=== PATIENT | male | born 1980 | race Two or more races ===

== ENCOUNTER 2017-06-09 19:32 | Emergency (ER) | payer OTHER ==
[~2017-06-09] VITALS: Ht 182.9 cm; Wt 100.0 kg
[2017-06-09 23:18] VITALS: BP 144/75
[2017-06-09] MEDS ORDERED: ANUC25SU PR (23:36)
== END 2017-06-09 23:41 | disposition home or self-care (01) ==
LOC: M ED 19:32
DX: K64.8 Other hemorrhoids (principal); Z88.5 Allergy status to narcotic agent; F17.200 Nicotine dependence, unspecified, uncomplicated

== ENCOUNTER 2018-02-16 17:14 | Emergency (ER) | payer OTHER ==
[2018-02-16] MEDS: KETOROLAC 30 MG/ML VIAL (J1885) IV (17:45)
[2018-02-16] MEDS: GI COCKTAIL 50ML BTL(HYOSCYAMINE/MAALOX/LIDOCAINE VISCOUS)(1:3:1) PO (17:45)
[2018-02-16 17:52] LABS: BASO # 0.1 10^3/uL (0.0-0.2); BASO % 0.5 % (0.0-1.0); EOS # 0.3 10^3/uL (0.0-0.50); HEMATOCRIT 44.4 % (42.0-52.0); IMMATURE GRANULOCYTE % 0.3 % (0-3.0); LYMPH # 3.4 10^3/uL (1.5-4.5); LYMPH % 34.7 % (24.0-44.0); MONO # 1.4 10^3/uL (0.0-0.8); MONO % 14.8 % (0.0-5.0); NEUTROPHILS # 4.5 10^3/uL (1.8-7.7); NEUTROPHILS % 46.7 % (36.0-66.0); PLATELET COUNT, AUTOMATED 233 10^3/uL (150-450); RED BLOOD COUNT 4.44 10^6/uL (4.30-6.10); RED CELL DISTRIBUTION WIDTH 12.3 % (11.5-14.5); WHITE BLOOD COUNT 9.7 10^3/uL (4.0-10.0)
[2018-02-16 18:04] LABS: ALBUMIN 3.9 GM/DL (3.2-5.2); ALBUMIN/GLOBULIN RATIO 0.91 (1.00-1.93); ALKALINE PHOSPHATASE 46 U/L (45-117); ALT/SGPT 33 U/L (12-78); ANION GAP 7 MEQ/L (8-16); AST/SGOT 20 U/L (7-37); BILIRUBIN,DIRECT 0.1 MG/DL (0.0-0.2); BILIRUBIN,TOTAL 0.4 MG/DL (0.2-1.0); BLOOD UREA NITROGEN 15 MG/DL (7-18); CALCIUM LEVEL 9.2 MG/DL (8.5-10.1); CARBON DIOXIDE LEVEL 25 MEQ/L (21-32); CHLORIDE LEVEL 108 MEQ/L (98-107); CK-MB VALUE MASS < 1.0 NG/ML (<3.6); CPK CREATINE PHOSPHOKINASE 155 U/L (39-308); CREATININE FOR GFR 1.16 MG/DL (0.70-1.30); GLOMERULAR FILTRATION RATE > 60.0 (>60); GLUCOSE, FASTING 82 MG/DL (70-100); LIPASE 131 U/L (73-393); MB/CK RELATIVE INDEX 0.64 (< OR =4); POTASSIUM SERUM 4.1 MEQ/L (3.5-5.1); SODIUM LEVEL 140 MEQ/L (136-145); TOTAL PROTEIN 8.2 GM/DL (6.4-8.2); TROPONIN I < 0.02 NG/ML (< 0.10)
[2018-02-16 18:59] LABS: KETONE, URINE AUTO RFX NEGATIVE (NEGATIVE); LEUKOCYTE ESTERASE UR AUTO RFX NEGATIVE (NEGATIVE); MUCUS, URINE RFX SMALL (NEGATIVE); NITRITE, URINE AUTO RFX NEGATIVE (NEGATIVE); RBC, URINE AUTO RFX 1 /HPF (0-3); SPECIFIC GRAVITY UR AUTO RFX 1.019 (1.002-1.035); SQUAM EPITHELIAL CELL UR AURFX 0 /HPF (0-6); WBC, URINE AUTO RFX 0 /HPF (0-3)
[2018-02-16] MEDS: SUCRALFATE SUSP 1GM/10ML UD PO (19:00)
== END 2018-02-16 19:22 | disposition home or self-care (01) ==
LOC: M ED 17:14
DX: R07.9 Chest pain, unspecified (principal); R10.9 Unspecified abdominal pain; R11.0 Nausea; Z79.899 Other long term (current) drug therapy; Z88.5 Allergy status to narcotic agent; F17.210 Nicotine dependence, cigarettes, uncomplicated
CPT/HCPCS: J1885

== ENCOUNTER → 2018-06-26 | Outpatient (REF) | payer OTHER ==
[2018-06-26 13:04] LABS: SEMEN APPEARANCE OPAQUE (OPAQUE); SEMEN VISCOSITY LIQUID (LIQUID); SEMEN VOLUME 2.7 ml (4.0-5.0); SEMEN pH 8.5 (7.0-8.0)
[2018-06-26 13:05] LABS: % NORMAL FORMS 4 % (>=4); IMMOTILITY 68 %; NON PROGRESSIVE MOTILITY (c) 16 %; PROGRESSIVE MOTILITY (a) 16 % (>=32); SPERM CONCENTRATION 34.2 M/ml (>=15.0); SPERM# 92.4 M/Ejac (>=39); TOTAL FUNCTIONAL 1.5 M/Ejac.; TOTAL MOTILITY 32 % (>=40); TOTAL PROGRESSIVE SPERM 14.8 M/Ejac.; WBC CONCENTRATION <=1 M/ml (<=1 M/ml)
== END ==
LOC: M LAB REF 13:01
DX: N46.9 Male infertility, unspecified (principal)

== ENCOUNTER 2019-07-17 07:11 | Emergency (ER) | payer OTHER ==
[~2019-07-17] VITALS: Ht 185.4 cm; Wt 100.9 kg
[~2019-07-17 07:11] MED LIST: ANUC25SU PR; PEPC1TAB5 PO; SUCR1SS PO
--- NOTE | 2019-07-17 07:56 | REP ---
Right foot radiographs: Four views. History: Fell in a hole. Findings: Four views of the right foot show overall normal mineralization. No fracture or subluxation is visible. No opaque foreign body seen. Impression: No fracture seen. Electronically Signed by Deepak Silva MD 07/17/2019 07:47 A
[2019-07-17] MEDS ORDERED: MOBI4TAB PO (08:16)
[2019-07-17] MEDS ORDERED: NAPROXEN 250 MG TAB PO ONE (08:30)
[2019-07-17 08:54] VITALS: BP 144/97
== END 2019-07-17 09:07 | disposition home or self-care (01) ==
LOC: M ED 07:11
DX: S93.401A Sprain of unspecified ligament of right ankle, initial encounter (principal); S93.601A Unspecified sprain of right foot, initial encounter; W22.8XXA Striking against or struck by other objects, initial encounter; Y99.0 Civilian activity done for income or pay; Z88.6 Allergy status to analgesic agent

== ENCOUNTER 2020-01-07 14:01 | Emergency (ER) | payer OTHER ==
[~2020-01-07] VITALS: Ht 185.4 cm; Wt 100.8 kg
[~2020-01-07 14:01] MED LIST changes: +MOBI4TAB PO
[2020-01-07] MEDS ORDERED: INDOMETHACIN 25 MG CAP PO ONE (14:45)
[2020-01-07 14:58] LABS: BASO # 0.1 10^3/uL (0.0-0.2); BASO % 0.5 % (0.0-1.0); EOS # 0.6 10^3/uL (0.0-0.5); EOS % 6.1 % (0.0-3.0); HEMATOCRIT 45.7 % (42.0-52.0); LYMPH # 2.1 10^3/uL (1.5-5.0); LYMPH % 21.4 % (24.0-44.0); MEAN CORPUSCULAR HEMOGLOBIN 35.3 pg (27.0-33.0); MEAN CORPUSCULAR VOLUME 100.9 fl (80.0-96.0); MONO # 1.2 10^3/uL (0.0-0.8); NEUTROPHILS # 5.8 10^3/uL (1.5-8.5); NEUTROPHILS % 59.2 % (36.0-66.0); PLATELET COUNT, AUTOMATED 248 10^3/uL (150-450); RED BLOOD COUNT 4.53 10^6/uL (4.30-6.10); WHITE BLOOD COUNT 9.9 10^3/uL (4.0-10.0)
[2020-01-07 15:22] LABS: BLOOD UREA NITROGEN 20 MG/DL (7-18); C REACTIVE PROTEIN QUANTITATIV 0.43 MG/DL (0.00-0.30); CALCIUM LEVEL 9.2 MG/DL (8.5-10.1); CARBON DIOXIDE LEVEL 26 MEQ/L (21-32); CHLORIDE LEVEL 107 MEQ/L (98-107); CREATININE FOR GFR 1.07 MG/DL (0.70-1.30); GLOMERULAR FILTRATION RATE > 60.0 (>60); GLUCOSE, FASTING 106 MG/DL (70-100); POTASSIUM SERUM 4.7 MEQ/L (3.5-5.1); SODIUM LEVEL 138 MEQ/L (136-145); URIC ACID 9.2 MG/DL (3.5-7.2)
[2020-01-07 15:26] LABS: ERYTHROCYTE SEDIMENTATION RATE 8 mm/hr (0-15)
[2020-01-07] MEDS ORDERED: COLCHICINE 0.6 MG TAB PO ONE (15:45)
[2020-01-07] MEDS ORDERED: COLC1TAB13 PO (15:47)
[2020-01-07 15:53] VITALS: BP 142/98
--- NOTE | 2020-01-07 23:04 | REP ---
LEFT 2ND TOE: Four views of left 2nd toe performed. There is no fracture, dislocation, or intrinsic bone disease. IMPRESSION: Negative exam left 2nd toe. Electronically Signed by Kasi Horta MD 01/08/2020 04:51 P
== END 2020-01-07 15:57 | disposition home or self-care (01) ==
LOC: M ED 14:01
DX: M1A.0720 Idiopathic chronic gout, left ankle and foot, without tophus (tophi) (principal); I10 Essential (primary) hypertension; F17.200 Nicotine dependence, unspecified, uncomplicated; Z90.49 Acquired absence of other specified parts of digestive tract; Z88.6 Allergy status to analgesic agent

== ENCOUNTER 2020-03-12 16:03 | Emergency (ER) | payer OTHER ==
[~2020-03-12] VITALS: Ht 185.4 cm; Wt 112.3 kg
[~2020-03-12 16:03] MED LIST changes: +COLC0.6T47 PO
--- NOTE | 2020-03-12 17:00 | REP ---
Left ankle series: Four views. History: Swelling and pain. Findings: Four views of the left ankle demonstrate anterior and lateral soft tissue swelling. Ankle mortise is intact. No fractures seen. A joint spaces are preserved. Impression: No fracture noted. Anterior soft tissue swelling. No erosive change. Electronically Signed by Deepak Silva MD 03/12/2020 04:51 P
[2020-03-12] MEDS ORDERED: INDO-16 PO (17:01)
[2020-03-12 17:10] VITALS: BP 140/88
[2020-05-08] MEDS ORDERED: COLC0.6T47 PO (16:49)
== END 2020-03-12 17:20 | disposition home or self-care (01) ==
LOC: M ED 16:03
DX: M10.9 Gout, unspecified (principal); I10 Essential (primary) hypertension; Z88.5 Allergy status to narcotic agent; Z79.899 Other long term (current) drug therapy

== ENCOUNTER 2020-05-08 14:14 | Emergency (ER) | payer OTHER ==
[~2020-05-08] VITALS: Ht 185.4 cm; Wt 108.6 kg
[~2020-05-08 14:14] MED LIST changes: -COLC0.6T47 PO; +COLC1TAB13 PO; +INDO-16 PO
[2020-05-08] MEDS ORDERED: ALEVE (14:25)
[2020-05-08] MEDS ORDERED: COLC1TAB13 PO (16:49)
[2020-05-08] MEDS ORDERED: NAPR-837 PO (16:50)
[2020-05-08 17:01] VITALS: BP 150/92
== END 2020-05-08 17:10 | disposition home or self-care (01) ==
LOC: M ED 14:14
DX: M10.9 Gout, unspecified (principal); I10 Essential (primary) hypertension; F43.10 Post-traumatic stress disorder, unspecified; Z88.5 Allergy status to narcotic agent; F17.210 Nicotine dependence, cigarettes, uncomplicated

== ENCOUNTER 2020-07-01 13:48 | Emergency (ER) | payer OTHER ==
[~2020-07-01] VITALS: Ht 185.4 cm; Wt 107.4 kg
[~2020-07-01 13:48] MED LIST changes: +ALEVE; +NAPR-837 PO
[2020-07-01] MEDS ORDERED: NAPR-837 PO (15:16)
[2020-07-01] MEDS ORDERED: ALLO100T PO (15:16)
[2020-07-01 15:27] VITALS: BP 158/92
== END 2020-07-01 15:44 | disposition home or self-care (01) ==
LOC: M ED 13:48
DX: M10.072 Idiopathic gout, left ankle and foot (principal); I10 Essential (primary) hypertension; F12.10 Cannabis abuse, uncomplicated; F17.200 Nicotine dependence, unspecified, uncomplicated; F43.10 Post-traumatic stress disorder, unspecified; Z88.6 Allergy status to analgesic agent

== ENCOUNTER 2020-10-05 18:48 | Emergency (ER) | payer OTHER ==
[~2020-10-05] VITALS: Ht 185.4 cm; Wt 106.5 kg
[~2020-10-05 18:48] MED LIST changes: +ALLO100T PO; +COLC0.6T47 PO; -COLC1TAB13 PO
--- OUTSIDE RECORDS SUMMARY | 2020-10-05 18:53 | CCD ---
Author Author [facility] Organization [facility] Address Unknown Phone Unavailable Support Name Relationship Address Phone CRACKER Next Of Kin [address] [place] [address] [facility] [place] [address] [place] [address] UE Next Of Kin Unknown Unavailable VERA DILLON Next Of Kin [address] [place] [address] [facility] ADE4 Next Of Kin [address] [place] [address] Clive DILLON Next Of Kin [place], [place] [id number] Vera Dillon ECON [address] [place] [address] Unavailable Re-disclosure Warning The records that you are about to access may contain information from federally-assisted alcohol or drug abuse programs. If such information is present, then the following federally mandated warning applies: This information has been disclosed to you from records protected by federal confidentiality rules (42 CFR part 2). The federal rules prohibit you from making any further disclosure of this information unless further disclosure is expressly permitted by the written consent of the person to whom it pertains or as otherwise permitted by 42 CFR part 2. A general authorization for the release of medical or other information is NOT sufficient for this purpose. The Federal rules restrict any use of the information to criminally investigate or prosecute any alcohol or drug abuse patient.The records that you are about to access may contain highly sensitive health information, the redisclosure of which is protected by Article 27-F of the [facility] Public Health law. If you continue you may have access to information: Regarding HIV / AIDS; Provided by facilities licensed or operated by the [facility] Office of Mental Health; or Provided by the [facility] Office for People With Developmental Disabilities. If such information is present, then the following [facility] mandated warning applies: This information has been disclosed to you from confidential records which are protected by state law. State law prohibits you from making any further disclosure of this information without the specific written consent of the person to whom it pertains, or as otherwise permitted by law. Any unauthorized further disclosure in violation of state law may result in a fine or correction sentence or both. A general authorization for the release of medical or other information is NOT sufficient authorization for further disc losure. Allergies and Adverse Reactions Type Description Substance Reaction Status Data Source(s ) Drug allergy Morphine Sulfate Morphine Angioedema Active eCW1 ([facility]) Encounters Encounter Providers Location Date Indications Data Source(s ) [facility] [address] [place] [address] 07/15/2020 12:00:00 AM EDT eCW1 ([facility]) [address] [address] 07/15/2020 12:00:00 AM EDT eCW1 ([facility]) [address] [place] [address] 01/14/2020 12:00:00 AM EDT eCW1 ([facility]) [address] [address] 01/08/2020 12:00:00 AM EDT eCW1 ([facility]) [address] [address] 01/08/2020 12:00:00 AM EDT eCW1 ([facility]) [address] [place] [address] 12/28/2019 12:00:00 AM EDT eCW1 ([facility]) Medications Medication Brand Name Start Date Product Form Dose Route Admi nistrative Instructions Pharmacy Instructions Status Indications Reaction Description Data Source(s) 500 mg 07/01/2020 12:00:00 AM EDT tablet 30 TAKE ONE TABLET BY MOUTH TWICE A DAY WITH FOOD TAKE ONE TABLET BY MOUTH TWICE A DAY WITH FOOD SOLD: 07/01/2020 [facility] 100 mg 07/01/2020 12:00:00 AM EDT tablet 30 TAKE ONE TABLET BY MOUTH EVERY DAY TAKE ONE TABLET BY MOUTH EVERY DAY SOLD: 07/01/2020 [facility] 500 mg 05/21/2020 12:00:00 AM EDT tablet 20 TAKE ONE TABLET BY MOUTH TWICE A DAY WITH FOOD TAKE ONE TABLET BY MOUTH TWICE A DAY WITH FOOD SOLD: 05/30/2020 [facility] 500 mg 05/08/2020 12:00:00 AM EDT tablet 30 TAKE ONE TABLET BY MOUTH TWICE A DAY - TAKE WITH FOOD TAKE ONE TABLET BY MOUTH TWICE A DAY - TAKE WITH FOOD SOLD: 05/08/2020 [facility] 0.6 mg 05/08/2020 12:00:00 AM EDT tablet 3 TAKE TWO TABLETS BY MOUTH NOW THEN TAKE ONE TABLET IN 1 HOUR DIRECTED TAKE TWO TABLETS BY MOUTH NOW THEN TAKE ONE TABLET IN 1 HOUR DIRECTED SOLD: 05/08/2020 [facility] 25 mg 03/12/2020 12:00:00 AM EDT capsule 30 TAKE ONE CAPSULE BY MOUTH THREE TIMES A DAY FOR ARTHRITIS WITH FOOD TAKE ONE CAPSULE BY MOUTH THREE TIMES A DAY FOR ARTHRITIS WITH FOOD SOLD: 03/12/2020 [facility] 500 mg 03/12/2020 12:00:00 AM EDT tablet 14 TAKE ONE TABLET BY MOUTH EVERY 12 HOURS WITH FOOD OR MILK FOR 7 DAYS TAKE ONE TABLET BY MOUTH EVERY 12 HOURS WITH FOOD OR MILK FOR 7 DAYS SOLD: 03/12/2020 [facility] Naproxen 500 MG Oral Tablet Naproxen 500 MG 01/08/2020 12:00:00 AM EDT active 1 tablet with food or milk a s needed eCW1 ([facility]) Naproxen 500 MG Oral Tablet Naproxen 500 MG 01/08/2020 12:00:00 AM EDT active 1 tablet with food or milk a s needed eCW1 ([facility]) 500 mg 01/08/2020 12:00:00 AM EDT tablet 14 TAKE ONE TABLET BY MOUTH WITH FOOD OR MILK NEEDED EVERY 12 HOURS FOR 7 DAYS TAKE ONE TABLET BY MOUTH WITH FOOD OR MILK NEEDED EVERY 12 HOURS FOR 7 DAYS SOLD: 01/08/2020 [facility] Insurance Providers Payer name Policy type / Coverage type Policy ID Covered libertarian ID Covered libertarian's relationship to vanegas Policy Vanegas Plan Information [facility] COMM[facility] PLAN [facility] [id number] SP [id number] [facility] O [id number] S [id number] [facility] COMMUNITY PLAN [facility] [id number] SP [id number] ANSI-Medicaid [id number] ANSI-Commercial [id number] ANSI-Not a Secondary Insurance [id number] [facility] PLAN [facility] [id number] SP [id number] [facility] [id number] SP [id number] [facility] O [id number] S 0001 [id number] [facility] [id number] Problems, Conditions, and Diagnoses Code Display Name Description Problem Type Effective Dates Data Source(s) M1A.0720 892901025747568 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 Problem 01/14/2020 12:00:00 AM EDT eCW1 ([facility]) M1A.0720 558891779351757 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 Problem 01/14/2020 12:00:00 AM EDT eCW1 ([facility]) Social History Code Duration Value Status Description Data Source(s ) Smoking 01/14/2020 12:00:00 AM EDT Current Smoker completed Curre nt Smoker eCW1 ([facility]) Vital Signs ID Date Data Source UNK Name Value Range Interpretation Code Description Data Source(s) Diastolic blood pressure 82 mm[Hg] 82 mm[Hg] eCW1 ([facility]) Systolic blood pressure 132 mm[Hg] 132 mm[Hg] e CW1 ([facility]) Body temperature 96.4 [degF] 96.4 [degF] eCW1 ( [facility]) Respiratory rate 18 /min 18 /min eCW1 ([facility]) Heart rate 93 /min 93 /min eCW1 ([facility]) Body mass index (BMI) [Ratio] 33.22 kg/m2 33.22 kg/m2 eCW1 ([facility]) Body height 72 [in_us] 72 [in_us] eCW1 ([facility]) Body weight Measured 245 [lb_av] 245 [lb_av] eC W1 ([facility]) Patient Treatment Plan of Care Planned Activity Planned Date Details Description Data Source (s) Naproxen 500 MG Oral Tablet 01/08/2020 12:00:00 AM EDT eCW1 ([facility]) Naproxen 500 MG Oral Tablet 01/08/2020 12:00:00 AM EDT eCW1 ([facility])
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
[2020-10-05] MEDS ORDERED: LIDOCAINE 4% CREAM 5GM (LMX4) TOP ONE (19:45)
[2020-10-05] MEDS ORDERED: NAPROXEN 250 MG TAB PO ONE (19:45)
[2020-10-05 19:58] LABS: BASO % 0.3 % (0.0-1.0); EOS # 0.6 10^3/uL (0.0-0.5); EOS % 5.5 % (0.0-3.0); HEMATOCRIT 45.2 % (42.0-52.0); LYMPH # 2.4 10^3/uL (1.5-5.0); LYMPH % 20.4 % (24.0-44.0); MEAN CORPUSCULAR HEMOGLOBIN 33.8 pg (27.0-33.0); MEAN CORPUSCULAR HGB CONC 33.2 g/dl (32.0-36.5); MEAN CORPUSCULAR VOLUME 101.8 fl (80.0-96.0); MONO # 1.6 10^3/uL (0.0-0.8); MONO % 13.3 % (0.0-5.0); NEUTROPHILS # 7.1 10^3/uL (1.5-8.5); NEUTROPHILS % 60.2 % (36.0-66.0); PLATELET COUNT, AUTOMATED 259 10^3/uL (150-450); RED BLOOD COUNT 4.44 10^6/uL (4.30-6.10); WHITE BLOOD COUNT 11.7 10^3/uL (4.0-10.0)
[2020-10-05 20:15] LABS: ERYTHROCYTE SEDIMENTATION RATE 8 mm/hr (0-15)
[2020-10-05 20:25] LABS: C REACTIVE PROTEIN QUANTITATIV 0.52 MG/DL (0.00-0.30); URIC ACID 9.2 MG/DL (3.5-7.2)
--- OUTSIDE RECORDS SUMMARY | 2020-10-05 20:41 | CCD ---
Author Author [facility] Organization [facility] Address Unknown Phone Unavailable Support Name Relationship Address Phone CRACKER Next Of Kin [address] [place] [address] [facility] RESERVES [place] [address] [place] [address] [phone] UE Next Of Kin Unknown Unavailable VERA DILLON Next Of Kin [address] [place] [address] [facility] ADE4 Next Of Kin [address] [place] [address] Clive DILLON Next Of Kin UNKNOWN [place], [place] [address] Vera Dillon ECON [address] [place] [address] Unavailable Re-disclosure Warning The records that you [...] is protected by Article 27-F of the [facility] Public Health law. If you continue you may have access to information: Regarding HIV / AIDS; Provided by facilities licensed or operated by the [facility] Office of Mental Health; or Provided by the [facility] Office for People With Developmental Disabilities. If such information is present, then the following [facility] mandated warning applies: This information has been [...] law may result in a fine or halfway sentence or both. A general authorization for the release of medical or other information is NOT sufficient authorization for further disc losure. Allergies and Adverse Reactions Type Description Substance Reaction Status Data Source(s ) Drug allergy Morphine Sulfate Morphine Angioedema Active eCW1 ([facility]) Encounters Encounter Providers Location Date Indications Data Source(s ) [facility] [address] [place] [address] 07/15/2020 12:00:00 AM EDT eCW1 ([facility]) [address] [address] 07/15/2020 12:00:00 AM EDT eCW1 ([facility]) [address] [place] [address] 01/14/2020 12:00:00 AM EDT eCW1 ([facility]) [address] [address] 01/08/2020 12:00:00 AM EDT eCW1 ([facility]) [address] [address] 01/08/2020 12:00:00 AM EDT eCW1 ([facility]) [address] [place] [address] 12/28/2019 12:00:00 AM EDT eCW1 ([facility]) Medications Medication Brand Name Start Date Product [...] food or milk a s needed eCW1 ([facility]) Naproxen 500 MG Oral Tablet Naproxen 500 MG 01/08/2020 12:00:00 AM EDT active 1 tablet with food or milk a s needed eCW1 ([facility]) 500 mg 01/08/2020 12:00:00 AM EDT tablet 14 TAKE ONE TABLET BY MOUTH WITH FOOD OR MILK NEEDED EVERY 12 HOURS FOR 7 DAYS TAKE ONE TABLET BY MOUTH WITH FOOD OR MILK NEEDED EVERY 12 HOURS FOR 7 DAYS SOLD: 01/08/2020 [facility] Insurance Providers Payer name Policy type / Coverage type Policy ID Covered green party ID Covered green party's relationship to vanegas Policy Vanegas Plan Information [facility] COMMUN[facility] PLAN [facility] [id number] SP [id number] [facility] O [id number] S [id number] [facility] COMMUNITY PLAN [facility] [id number] SP [id number] ANSI-Medicaid [id number] ANSI-Commercial [id number] ANSI-Not a Secondary Insurance [id number] [facility] PLAN [facility] [id number] SP [id number] [facility] [id number] SP [id number] [facility] O [id number] S 0001 [id number] [facility] [id number] Problems, Conditions, and Diagnoses Code Display Name Description Problem Type Effective Dates Data Source(s) M1A.0720 [id number] 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 Problem 01/14/2020 12:00:00 AM EDT eCW1 ([facility]) M1A.0720 175347288199357 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 Problem 01/14/2020 12:00:00 AM EDT eCW1 ([facility]) Social History Code Duration Value Status Description Data Source(s ) Smoking 01/14/2020 12:00:00 AM EDT Current Smoker completed Curre nt Smoker eCW1 ([facility]) Vital Signs ID Date Data Source UNK Name Value Range Interpretation Code Description Data Source(s) Diastolic blood pressure 82 mm[Hg] 82 mm[Hg] eCW1 ([facility]) Systolic blood pressure 132 mm[Hg] 132 mm[Hg] e CW1 ([facility]) Body temperature 96.4 [degF] 96.4 [degF] eCW1 ( [facility]) Respiratory rate 18 /min 18 /min eCW1 ([facility]) Heart rate 93 /min 93 /min eCW1 ([facility]) Body mass index (BMI) [Ratio] 33.22 kg/m2 33.22 kg/m2 eCW1 ([facility]) Body height 72 [in_us] 72 [in_us] eCW1 ([facility]) Body weight Measured 245 [lb_av] 245 [lb_av] eC W1 ([facility]) Patient Treatment Plan of Care Planned Activity Planned Date Details Description Data Source (s) Naproxen 500 MG Oral Tablet 01/08/2020 12:00:00 AM EDT eCW1 ([facility]) Naproxen 500 MG Oral Tablet 01/08/2020 12:00:00 AM EDT eCW1 ([facility])
[2020-10-05] MEDS ORDERED: NAPR-837 PO (20:46)
--- NOTE | 2020-10-05 20:49 | REPVR ---
PROCEDURE INFORMATION: Exam: US Duplex Left Lower Extremity Veins, Limited Exam date and time: 10/05/2020 8:23 PM Age: 40 years old Clinical indication: Pain; Foot; Left; Additional info: Ankle pain, swelling TECHNIQUE: Imaging protocol: Real-time Duplex ultrasound of the Left Lower Extremity with 2-D monroy scale, color Doppler flow and spectral waveform analysis with image documentation. Limited exam focused on the left lower extremity veins. COMPARISON: No relevant prior studies available. FINDINGS: Left deep veins: Unremarkable. The common femoral, femoral, proximal profunda femoral and popliteal veins are patent without thrombus. Normal Doppler waveforms. Normal compressibility and/or augmentation response. Soft tissues: Unremarkable. IMPRESSION: No evidence of deep vein thrombosis. Electronically signed by: Chente England On 10/05/2020 20:49:41 PM
[2020-10-05] MEDS ORDERED: NORCO 5/325MG TABLET (BULK FOR ED) PO ONE (21:00)
[2020-10-05 21:23] VITALS: BP 172/124
== END 2020-10-05 21:24 | disposition home or self-care (01) ==
LOC: M ED 18:48
DX: M10.9 Gout, unspecified (principal); Z79.899 Other long term (current) drug therapy; Z88.5 Allergy status to narcotic agent

== ENCOUNTER 2020-11-30 15:28 | Emergency (ER) | payer OTHER ==
[~2020-11-30] VITALS: Ht 185.4 cm; Wt 106.7 kg
[2020-11-30] MEDS ORDERED: IBUP-359 PO (15:45)
[2020-11-30] MEDS ORDERED: KETOROLAC 60MG 2ML VIAL IM ONE (16:25)
[2020-11-30] MEDS ORDERED: ROBA750T4 PO (17:12)
[2020-11-30] MEDS ORDERED: KETO10TAB PO (17:13)
[2020-11-30 17:35] VITALS: BP 152/88
== END 2020-11-30 17:38 | disposition home or self-care (01) ==
LOC: M ED 15:28
DX: G89.29 Other chronic pain (principal); M54.5 Low back pain; I10 Essential (primary) hypertension; F43.10 Post-traumatic stress disorder, unspecified; M10.9 Gout, unspecified; Z88.5 Allergy status to narcotic agent; F17.210 Nicotine dependence, cigarettes, uncomplicated
CPT/HCPCS: 96372; 99283; J1885

== ENCOUNTER 2021-03-05 16:53 | Emergency (ER) | payer OTHER ==
[~2021-03-05] VITALS: Ht 185.4 cm; Wt 99.7 kg
[~2021-03-05 16:53] MED LIST changes: +IBUP-359 PO; +KETO10TAB PO; +ROBA750T4 PO
[2021-03-05] MEDS ORDERED: DERMABOND TOPICAL SKIN ADHESIVE TOP ONE (20:00)
[2021-03-05] MEDS ORDERED: BOOSTRIX/ADACEL VACCINE (DIPHTH/PERTUSS/ACELL/TETANUS) 0.5ML SYR IM ONE (20:00)
[2021-03-05 21:22] VITALS: BP 168/98
--- NOTE | 2021-03-05 21:56 | REPVR ---
PROCEDURE INFORMATION: Exam: XR Left Finger(s) Exam date and time: 03/05/2021 8:23 PM Age: 41 years old Clinical indication: Other: R/O fb TECHNIQUE: Imaging protocol: XR Left fingers. Views: Minimum 2 views. COMPARISON: No relevant prior studies available. FINDINGS: Bones/joints: No acute fracture or dislocation. No radiopaque foreign body is apparent. Soft tissues: See "Bones/joints" finding. IMPRESSION: No acute findings. Electronically signed by: Charlette Garner On 03/05/2021 21:56:20 PM
== END 2021-03-05 22:03 | disposition home or self-care (01) ==
LOC: M ED 16:53
DX: S61.211A Laceration without foreign body of left index finger without damage to nail, initial encounter (principal); W26.8XXA Contact with other sharp object(s), not elsewhere classified, initial encounter; Y92.018 Other place in single-family (private) house as the place of occurrence of the external cause; I10 Essential (primary) hypertension; Z88.5 Allergy status to narcotic agent; F17.210 Nicotine dependence, cigarettes, uncomplicated; F12.20 Cannabis dependence, uncomplicated

== ENCOUNTER 2021-07-05 15:08 | Emergency (ER) | payer OTHER ==
[~2021-07-05] VITALS: Ht 185.4 cm; Wt 97.1 kg
--- OUTSIDE RECORDS SUMMARY | 2021-07-05 15:15 | CCD ---
Author Author [facility] Organization [facility] Address Unknown Phone Unavailable Support Name Relationship Address Phone RE Next Of Kin Unknown Unavailable CRACKER Next Of Kin [address] [place] [address] [facility] [place]ERVES [place] [address] [place] [employer] Next Of Kin [address] [place] [address] UE Next Of Kin Unknown Unavailable VERA DILLON Next Of Kin [address] [place] [address] [facility] ADE4 Next Of Kin [address] [place] [address] C[place] [address] VERA DILLON ECON [address] [place] [address] Unavailable Re-disclosure Warning The records that you [...] is protected by Article 27-F of the [facility] Public Health law. If you continue you may have access to information: Regarding HIV / AIDS; Provided by facilities licensed or operated by the [facility] Office of Mental Health; or Provided by the [facility] Office for People With Developmental Disabilities. If such information is present, then the following [facility] mandated warning applies: This information has been [...] law may result in a fine or skilled nursing sentence or both. A general authorization for the release of medical or other information is NOT sufficient authorization for further disc losure. Encounters Encounter Providers Location Date Indications Data Source(s ) Unknown [address] [facility] [id number] 01/08/2021 12:00:00 AM EDT eCW1 (Formerly [facility]) Outpatient [address] [facility] [id number] 12/03/2020 12:00:00 AM EDT eCW1 ([facility]ly [facility]) Unknown [address] [facility] [address] [id number] 07/15/2020 12:00:00 AM EDT eCW1 ([facility]ly [facility]) [facility] [place] [address] [facility] [id number] 07/15/2020 12:00:00 AM EDT eCW1 ([facility]ly [facility]) Medications Medication Brand Name Start Date Product Form Dose Route Admi nistrative Instructions Pharmacy Instructions Status Indications Reaction Description Data Source(s) 500 mg 12/03/2020 12:00:00 AM EDT tablet 60 TAKE ONE TABLET BY MOUTH WITH FOOD OR MILK NEEDED FOR EVERY 12 HOURS TAKE ONE TABLET BY MOUTH WITH FOOD OR MILK NEEDED FOR EVERY 12 HOURS SOLD: 12/04/2020 [facility] 10 mg 12/01/2020 12:00:00 AM EDT tablet 20 TAKE ONE TABLET BY MOUTH EVERY 6 HOURS NEEDED FOR PAIN TAKE ONE TABLET BY MOUTH EVERY 6 HOURS A S NEEDED FOR PAIN SOLD: 12/01/2020 [facility] 750 mg 12/01/2020 12:00:00 AM EDT tablet 45 TAKE ONE TABLET BY MOUTH THREE TIMES A DAY TAKE ONE TABLET BY MOUTH THREE TIMES A DAY SOLD: 12/01/2020 [facility] 100 mg 07/01/2020 12:00:00 AM EDT tablet 30 TAKE ONE TABLET BY MOUTH EVERY DAY TAKE ONE TABLET BY MOUTH EVERY DAY SOLD: 07/01/2020 [facility] 500 mg 07/01/2020 12:00:00 AM EDT tablet 30 TAKE ONE TABLET BY MOUTH TWICE A DAY WITH FOOD TAKE ONE TABLET BY MOUTH TWICE A DAY WITH FOOD SOLD: 07/01/2020 [facility] 500 mg 05/21/2020 [...] 1 HOUR DIRECTED SOLD: 05/08/2020 [facility] Insurance Providers Payer name Policy type / Coverage type Policy ID Covered constitution party ID Covered constitution party's relationship to vanegas Policy Vanegas Plan Information [facility] [id number] SP [id number] [facility] [id number] SP [id number] [facility] [employer] [id number] SP [id number] [facility] O [id number] S [id number] ANSI-Medicaid [id number] ANSI-Commercial [id number] ANSI-Not a Secondary Insurance [id number] [facility] [id number] SP [id number] [facility] [id number] S 0001 [id number] [facility] [id number] Problems, Conditions, and Diagnoses No Information Surgeries/Procedures No Information Results No Information Social History Code Duration Value Status Description Data Source(s ) Smoking 12/03/2020 12:00:00 AM EDT Current Smoker completed Curre nt Smoker eCW1 ([facility]) Smoking 12/03/2020 12:00:00 AM EDT Current Smoker completed Curre nt Smoker eCW1 ([facility]) Vital Signs ID Date Data Source UNK Name Value Range Interpretation Code Description Data Source(s) Body weight 232 [lb_av] 232 [lb_av] eCW1 ([facility]) Body height 72 [in_i] 72 [in_i] eCW1 ([facility]) Body mass index (BMI) [Ratio] 31.46 kg/m2 31.46 kg/m2 eCW1 ([facility]) Heart rate 78 /min 78 /min eCW1 (Replaced by [facility]) Respiratory rate 18 /min 18 /min eCW1 ([facility]) Body temperature 97.9 [degF] 97.9 [degF] eCW1 ( [facility]) Systolic blood pressure 140 mm[Hg] 140 mm[Hg] e CW1 ([facility]) Diastolic blood pressure 100 mm[Hg] 100 mm[Hg] eCW1 ([facility])
[2021-07-05 17:13] LABS: RSV AMPLIFICATION NEGATIVE (NEGATIVE)
--- OUTSIDE RECORDS SUMMARY | 2021-07-05 17:16 | CCD ---
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 If you continue you may have access to information: Regarding HIV / AIDS; Provided by facilities licensed or operated by the [facility] Office of Mental Health; or Provided by the [facility] Office for People With Developmental Disabilities. If such information is present, then the following [facility] mandated warning applies: This information has [...] law may result in a fine or intermediate sentence or both. A general authorization for the release of medical or other information is NOT sufficient authorization for further disc losure. Encounters Encounter Providers Location Date Indications Data Source(s ) Unknown [address] [facility] [id number] 01/08/2021 12:00:00 AM EDT eCW1 ([facility]) Outpatient [address] [facility] [id number] 12/03/2020 12:00:00 AM EDT eCW1 ([facility]) Unknown [address] [facility] [address] [id number] 07/15/2020 12:00:00 AM EDT eCW1 ([facility]) [facility] [place] [address] [facility] [id number] 07/15/2020 12:00:00 AM EDT eCW1 ([facility]) Medications Medication Brand Name Start Date [...] relationship to vanegas Policy Vanegas Plan Information [facility] [id number] SP [id number] [facility] [id number] SP [id number] [facility] [id number] SP [id number] [facility] O [id number] S [id number] ANSI-Medicaid [id number] ANSI-Commercial [id number] ANSI-Not a Secondary Insurance [id number] [facility] [id number] SP [id number] [facility] [id number] S 0001 [id number] [facility] [id number] Problems, Conditions, and Diagnoses No Information Surgeries/Procedures No Information Results No Information Social History Code Duration Value Status Description Data Source(s ) Smoking 12/03/2020 12:00:00 AM EDT Current Smoker completed Curre nt Smoker eCW1 ([facility]) Smoking 12/03/2020 12:00:00 AM EDT Current Smoker completed Curre nt Smoker eCW1 ([facility]) Vital Signs ID Date Data Source UNK Name Value Range Interpretation Code Description Data Source(s) Body weight 232 [lb_av] 232 [lb_av] eCW1 ([facility]) Body height 72 [in_i] 72 [in_i] eCW1 ([facility]) Body mass index (BMI) [Ratio] 31.46 kg/m2 31.46 kg/m2 eCW1 ([facility]) Heart rate 78 /min 78 /min eCW1 ([facility]) Respiratory rate 18 /min 18 /min eCW1 ([facility]) Body temperature 97.9 [degF] 97.9 [degF] eCW1 ( [facility]) Systolic blood pressure 140 mm[Hg] 140 mm[Hg] e CW1 ([facility]) Diastolic blood pressure 100 mm[Hg] 100 mm[Hg] eCW1 ([facility])
[2021-07-05 17:53] VITALS: BP 160/100; O2SAT 98
--- NOTE | 2021-07-05 18:05 | REP ---
INDICATION: COUGH, FEVERS/CHILLS, COVID EXPOSURE COMPARISON: 02/16/2018 TECHNIQUE: Portable AP view of the chest FINDINGS: The mediastinum and cardiac silhouette are stable and within normal limits for portable technique. The lung silverman are clear without acute consolidation, effusion, or pneumothorax. Skeletal structures are intact. IMPRESSION: No acute cardiopulmonary process appreciated. <Electronically signed by Ludwin Roldan > 07/05/21 [id number]
[2021-07-05] MEDS ORDERED: ONDA4TAB6 PO (18:17)
[2021-07-05] MEDS ORDERED: PROAAER10 INH (18:17)
== END 2021-07-05 18:30 | disposition home or self-care (01) ==
LOC: M ED 15:08
DX: Z20.822 Contact with and (suspected) exposure to COVID-19 (principal); J06.9 Acute upper respiratory infection, unspecified; I10 Essential (primary) hypertension; F17.200 Nicotine dependence, unspecified, uncomplicated; F12.10 Cannabis abuse, uncomplicated; Z88.6 Allergy status to analgesic agent

== ENCOUNTER 2021-11-04 14:53 | Emergency (ER) | payer OTHER ==
[~2021-11-04] VITALS: Ht 185.4 cm; Wt 98.9 kg
[~2021-11-04 14:53] MED LIST changes: +ONDA4TAB6 PO; +PROAAER10 INH
[2021-11-04 16:07] LABS: BASO % 0.4 % (0.0-1.0); EOS # 0.3 10^3/uL (0.0-0.5); EOS % 3.2 % (0.0-3.0); HEMATOCRIT 44.8 % (42.0-52.0); HEMOGLOBIN 15.1 g/dl (13.5-17.5); LYMPH # 1.3 10^3/uL (1.5-5.0); LYMPH % 15.4 % (24.0-44.0); MEAN CORPUSCULAR HEMOGLOBIN 35.2 pg (27.0-33.0); MEAN CORPUSCULAR HGB CONC 33.7 g/dl (32.0-36.5); MEAN CORPUSCULAR VOLUME 104.4 fl (80.0-96.0); MONO # 1.4 10^3/uL (0.0-0.8); MONO % 16.1 % (2.0-8.0); NEUTROPHILS # 5.5 10^3/uL (1.5-8.5); NEUTROPHILS % 64.5 % (36.0-66.0); PLATELET COUNT, AUTOMATED 206 10^3/uL (150-450); RED BLOOD COUNT 4.29 10^6/uL (4.30-6.10); WHITE BLOOD COUNT 8.6 10^3/uL (4.0-10.0)
[2021-11-04 16:22] LABS: BLOOD UREA NITROGEN 13 MG/DL (7-18); C REACTIVE PROTEIN QUANTITATIV 7.21 MG/DL (0.00-0.30); CALCIUM LEVEL 8.5 MG/DL (8.5-10.1); CARBON DIOXIDE LEVEL 24 MEQ/L (21-32); CHLORIDE LEVEL 109 MEQ/L (98-107); CREATININE FOR GFR 1.05 MG/DL (0.70-1.30); GLOMERULAR FILTRATION RATE > 60.0 (>60); GLUCOSE, FASTING 91 MG/DL (70-100); POTASSIUM SERUM 4.1 MEQ/L (3.5-5.1); SODIUM LEVEL 141 MEQ/L (136-145); URIC ACID 7.4 MG/DL (3.5-7.2)
[2021-11-04 16:33] LABS: ERYTHROCYTE SEDIMENTATION RATE 16 mm/hr (0-15)
[2021-11-04] MEDS ORDERED: INDO50CA91 PO ×2 (16:55→17:39)
[2021-11-04 17:37] VITALS: BP 171/116
[2021-11-06 17:09] LABS: Lyme Disease IgG/IgM Antibodie <0.91 ISR (0.00-0.90); Lyme Disease IgM Ab Quantitati <0.80 index (0.00-0.79)
== END 2021-11-04 17:45 | disposition home or self-care (01) ==
LOC: M ED 14:53
DX: M10.9 Gout, unspecified (principal); M25.461 Effusion, right knee; I10 Essential (primary) hypertension; F43.10 Post-traumatic stress disorder, unspecified; Z88.5 Allergy status to narcotic agent; F17.210 Nicotine dependence, cigarettes, uncomplicated

== ENCOUNTER 2021-11-16 17:37 | Emergency (ER) | payer OTHER ==
[~2021-11-16] VITALS: Ht 185.4 cm; Wt 95.5 kg
[~2021-11-16 17:37] MED LIST changes: +INDO50CA91 PO
[2021-11-16 20:01] LABS: BASO # 0.1 10^3/uL (0.0-0.2); BASO % 0.4 % (0.0-1.0); EOS # 0.2 10^3/uL (0.0-0.5); EOS % 1.3 % (0.0-3.0); HEMATOCRIT 49.4 % (42.0-52.0); LYMPH # 1.7 10^3/uL (1.5-5.0); LYMPH % 14.3 % (24.0-44.0); MEAN CORPUSCULAR HEMOGLOBIN 34.8 pg (27.0-33.0); MEAN CORPUSCULAR HGB CONC 34.4 g/dl (32.0-36.5); MONO # 1.4 10^3/uL (0.0-0.8); MONO % 11.9 % (2.0-8.0); NEUTROPHILS # 8.4 10^3/uL (1.5-8.5); NEUTROPHILS % 71.6 % (36.0-66.0); PLATELET COUNT, AUTOMATED 343 10^3/uL (150-450); RED BLOOD COUNT 4.89 10^6/uL (4.30-6.10); WHITE BLOOD COUNT 11.7 10^3/uL (4.0-10.0)
[2021-11-16 20:26] LABS: BLOOD UREA NITROGEN 14 MG/DL (7-18); CALCIUM LEVEL 9.7 MG/DL (8.5-10.1); CARBON DIOXIDE LEVEL 30 MEQ/L (21-32); CHLORIDE LEVEL 103 MEQ/L (98-107); CREATININE FOR GFR 1.13 MG/DL (0.70-1.30); GLOMERULAR FILTRATION RATE > 60.0 (>60); GLUCOSE, FASTING 93 MG/DL (70-100); POTASSIUM SERUM 4.6 MEQ/L (3.5-5.1); SODIUM LEVEL 138 MEQ/L (136-145); URIC ACID 7.5 MG/DL (3.5-7.2)
[2021-11-16 21:17] VITALS: BP 170/105
[2021-11-16] MEDS ORDERED: COLCHICINE 0.6 MG TABLET PO ONE ×2 (21:25→21:35)
[2021-11-16] MEDS ORDERED: LISI10TA22 PO (21:34)
[2021-11-16 22:00] VITALS: BP 170/105
== END 2021-11-16 22:20 | disposition home or self-care (01) ==
LOC: M ED 17:37
DX: M10.072 Idiopathic gout, left ankle and foot (principal); I10 Essential (primary) hypertension; Z88.5 Allergy status to narcotic agent; Z79.899 Other long term (current) drug therapy; F17.210 Nicotine dependence, cigarettes, uncomplicated

== ENCOUNTER 2021-12-10 15:39 | Emergency (ER) | payer OTHER ==
[~2021-12-10] VITALS: Ht 185.4 cm; Wt 95.6 kg
[~2021-12-10 15:39] MED LIST changes: +LISI10TA22 PO
[2021-12-10] MEDS ORDERED: INDO50CA91 PO (16:39)
[2021-12-10 17:16] VITALS: BP 115/77
== END 2021-12-10 17:18 | disposition home or self-care (01) ==
LOC: M ED 15:39
DX: M10.9 Gout, unspecified (principal); I10 Essential (primary) hypertension; F43.10 Post-traumatic stress disorder, unspecified; Z79.899 Other long term (current) drug therapy; Z88.5 Allergy status to narcotic agent; F12.20 Cannabis dependence, uncomplicated

== ENCOUNTER 2022-01-21 21:48 | Emergency (ER) | payer OTHER ==
[~2022-01-21] VITALS: Ht 185.4 cm; Wt 97.7 kg
[~2022-01-21 21:48] MED LIST changes: +BENZ200C70 PO; +OSEL75CA PO
[2022-01-21 21:49] VITALS: BP 137/89
[2022-01-22] MEDS ORDERED: NAPROXEN 250 MG TAB PO ONE (03:15)
[2022-01-22] MEDS ORDERED: NAPR-837 PO (03:17)
== END 2022-01-22 03:38 | disposition home or self-care (01) ==
LOC: M ED 21:48
DX: M71.22 Synovial cyst of popliteal space [Baker], left knee (principal); Z88.5 Allergy status to narcotic agent; F17.210 Nicotine dependence, cigarettes, uncomplicated

== ENCOUNTER 2022-03-11 12:11 | Emergency (ER) | payer OTHER ==
[~2022-03-11] VITALS: Ht 185.4 cm; Wt 95.6 kg
[2022-03-11 12:12] VITALS: BP 135/93
[2022-03-11] MEDS ORDERED: IBUP200C29 PO (12:27)
== END 2022-03-11 15:32 | disposition left against medical advice (07) ==
LOC: M ED 12:11
DX: Z53.29 Procedure and treatment not carried out because of patient's decision for other reasons (principal)

== ENCOUNTER → 2022-06-16 | Outpatient (CLI) | payer OTHER ==
[~2022-06-16] MED LIST changes: +IBUP200C29 PO
[2022-06-16 13:50] LABS: HEMOGLOBIN A1c 5.4 %
[2022-06-16 14:19] LABS: BLOOD UREA NITROGEN 21 MG/DL (7-18); CALCIUM LEVEL 9.3 MG/DL (8.5-10.1); CARBON DIOXIDE LEVEL 28 MEQ/L (21-32); CHLORIDE LEVEL 108 MEQ/L (98-107); CREATININE FOR GFR 1.25 MG/DL (0.70-1.30); GLOMERULAR FILTRATION RATE > 60.0 (>60); GLUCOSE, FASTING 104 MG/DL (70-100); POTASSIUM SERUM 4.4 MEQ/L (3.5-5.1); SODIUM LEVEL 142 MEQ/L (136-145)
[2022-06-16 14:20] LABS: ALBUMIN 3.7 GM/DL (3.2-5.2); ALT/SGPT 28 U/L (12-78); BILIRUBIN,TOTAL 0.3 MG/DL (0.2-1.0); CHOLESTEROL LEVEL 176 MG/DL (<200); CHOLESTEROL RISK RATIO 3.666 (<5); HDL CHOLESTEROL 48 MG/DL (>40); LDL CHOLESTEROL 114 MG/DL (<100); NON-HDL-C 128 MG/DL; TOTAL PROTEIN 7.1 GM/DL (6.4-8.2); TRIGLYCERIDES LEVEL 68 MG/DL (<150)
[2022-06-16 15:30] LABS: HEPATITIS C VIRUS ABY INDEX < 0.0 INDEX (<0.8)
[2022-06-16 15:31] LABS: HIV 1&2 SCREEN CENTAUR NEGATIVE (NEGATIVE)
== END ==
LOC: M PLALAB 09:14
PROVIDERS: ATTEND Family Medicine
DX: Z11.9 Encounter for screening for infectious and parasitic diseases, unspecified (principal)

== ENCOUNTER → 2022-06-30 | Outpatient (CLI) | payer OTHER | LOC: M PLAIMG 12:12 | PROVIDERS: ATTEND Physician Assistant | DX: M25.561 Pain in right knee (principal); M25.461 Effusion, right knee ==

== ENCOUNTER → 2022-07-14 | Outpatient (CLI) | payer OTHER | LOC: M RAD 14:45 | PROVIDERS: ATTEND Orthopaedic Surgery Hand Surgery | DX: M94.261 Chondromalacia, right knee (principal); M25.461 Effusion, right knee ==

== ENCOUNTER → 2022-08-18 | Outpatient (RCR) | payer OTHER | LOC: M PT 08-04 14:50 | PROVIDERS: ATTEND Orthopaedic Surgery Hand Surgery | DX: M25.561 Pain in right knee (principal) ==

== ENCOUNTER 2022-09-15 16:00 | Outpatient (RCR) | payer OTHER | END 2022-09-18 | LOC: M PT 16:00 | PROVIDERS: ATTEND Orthopaedic Surgery Hand Surgery | DX: M25.561 Pain in right knee (principal) ==

== ENCOUNTER 2022-09-28 16:00 | Outpatient (RCR) | payer OTHER | END 2022-10-19 | LOC: M PT 16:00 | PROVIDERS: ATTEND Orthopaedic Surgery Hand Surgery | DX: M25.561 Pain in right knee (principal) ==

== ENCOUNTER → 2022-12-31 | Outpatient (CLI) | payer OTHER | LOC: M PLAIMG 11:43 | PROVIDERS: ATTEND Family Medicine | DX: K08.89 Other specified disorders of teeth and supporting structures (principal); R22.0 Localized swelling, mass and lump, head; R68.84 Jaw pain ==

== ENCOUNTER → 2023-01-06 | Outpatient (REF) | payer OTHER | LOC: M SFHCPLAZ 16:33 | PROVIDERS: ATTEND Family Medicine | DX: M1A.0720 Idiopathic chronic gout, left ankle and foot, without tophus (tophi) (principal); Z53.8 Procedure and treatment not carried out for other reasons ==

== ENCOUNTER → 2023-01-11 | Outpatient (CLI) | payer OTHER ==
[2023-01-11 14:21] LABS: URIC ACID 8.8 MG/DL (3.7-9.2)
[2023-01-11 14:23] LABS: BLOOD UREA NITROGEN 23 MG/DL (9-23); CALCIUM LEVEL 9.1 MG/DL (8.5-10.1); CARBON DIOXIDE LEVEL 31 MMOL/L (20-31); CHLORIDE LEVEL 104 MMOL/L (98-107); CREATININE FOR GFR 1.11 MG/DL (0.70-1.30); GLOMERULAR FILTRATION RATE > 60.0 (>60); GLUCOSE, FASTING 79 MG/DL (60-100); SODIUM LEVEL 141 MMOL/L (136-145)
== END ==
LOC: M PLALAB 10:04
PROVIDERS: ATTEND Family Medicine
DX: M1A.0720 Idiopathic chronic gout, left ankle and foot, without tophus (tophi) (principal)

== ENCOUNTER 2023-03-02 21:19 | Emergency (ER) | payer OTHER ==
[~2023-03-02] VITALS: Ht 185.4 cm; Wt 105.6 kg
[2023-03-02 21:21] VITALS: TEMP 97.8
[2023-03-02] MEDS ORDERED: COLC0.6T47 (21:31)
[2023-03-02] MEDS ORDERED: ALLO200T (21:31)
[2023-03-03 01:41] VITALS: BP 113/59
[2023-03-03 02:49] VITALS: O2SAT 99
== END 2023-03-03 02:58 | disposition home or self-care (01) ==
LOC: M ED 21:19
DX: F12.920 Cannabis use, unspecified with intoxication, uncomplicated (principal); I10 Essential (primary) hypertension; M51.9 Unspecified thoracic, thoracolumbar and lumbosacral intervertebral disc disorder; Z88.5 Allergy status to narcotic agent; Z79.899 Other long term (current) drug therapy; M10.9 Gout, unspecified

== ENCOUNTER → 2023-03-24 | Outpatient (CLI) | payer OTHER ==
[~2023-03-24] MED LIST changes: +ALLO200T; +COLC0.6T47
[2023-03-24 17:49] LABS: URIC ACID 9.9 MG/DL (3.7-9.2)
[2023-03-24 17:52] LABS: BLOOD UREA NITROGEN 20 MG/DL (9-23); CALCIUM LEVEL 9.3 MG/DL (8.5-10.1); CARBON DIOXIDE LEVEL 29 MMOL/L (20-31); CHLORIDE LEVEL 106 MMOL/L (98-107); CREATININE FOR GFR 1.03 MG/DL (0.70-1.30); GLOMERULAR FILTRATION RATE > 60.0 (>60); GLUCOSE, FASTING 83 MG/DL (60-100); POTASSIUM SERUM 4.2 MMOL/L (3.5-5.1); SODIUM LEVEL 140 MMOL/L (136-145)
[2023-03-24 17:55] LABS: THYROID STIMULATING HORMONE 2.554 uIU/ML (0.55-4.78)
== END ==
LOC: M PLALAB 16:28
PROVIDERS: ATTEND Family Medicine
DX: M1A.0720 Idiopathic chronic gout, left ankle and foot, without tophus (tophi) (principal); I10 Essential (primary) hypertension

== ENCOUNTER → 2023-04-26 | Outpatient (CLI) | payer OTHER | LOC: M SOG 09:32 | PROVIDERS: ATTEND Physician Assistant | DX: M25.532 Pain in left wrist (principal) ==

== ENCOUNTER → 2023-09-16 | Outpatient (CLI) | payer OTHER | LOC: M SOG 07:51 | PROVIDERS: ATTEND Physician Assistant | DX: Z53.9 Procedure and treatment not carried out, unspecified reason (principal) ==

== ENCOUNTER → 2023-10-03 | Outpatient (CLI) | payer OTHER | LOC: M SOG 10:14 | PROVIDERS: ATTEND Physician Assistant | DX: M54.50 Low back pain, unspecified (principal); M25.561 Pain in right knee; M25.462 Effusion, left knee ==

== ENCOUNTER → 2023-10-21 | Outpatient (CLI) | payer OTHER | LOC: M PLAIMG 10:18 | PROVIDERS: ATTEND Physician Assistant | DX: S83.011D Lateral subluxation of right patella, subsequent encounter (principal); X58.XXXD Exposure to other specified factors, subsequent encounter ==

== ENCOUNTER 2023-11-16 13:49 | Outpatient (RCR) | payer OTHER | END 2023-11-17 | LOC: M PT 13:49 | PROVIDERS: ATTEND Physician Assistant | DX: M54.42 Lumbago with sciatica, left side (principal) ==

== ENCOUNTER 2023-12-16 14:15 | Outpatient (RCR) | payer OTHER | END 2023-12-18 | LOC: M PT 14:15 | PROVIDERS: ATTEND Physician Assistant | DX: M54.42 Lumbago with sciatica, left side (principal) ==

== ENCOUNTER 2023-12-20 13:53 | Outpatient (RCR) | payer OTHER | END 2024-01-17 | LOC: M PT 13:53 | PROVIDERS: ATTEND Physician Assistant | DX: M54.42 Lumbago with sciatica, left side (principal) ==

== ENCOUNTER → 2024-01-27 | Outpatient (CLI) | payer OTHER, SELFPAY | LOC: M PLAIMG 16:07 | PROVIDERS: ATTEND Physician Assistant | DX: M51.27 Other intervertebral disc displacement, lumbosacral region (principal); M54.42 Lumbago with sciatica, left side ==

== ENCOUNTER → 2025-04-10 | Outpatient (CLI) | payer OTHER ==
[~2025-04-10] MED LIST changes: +ONDA-282 PO; -ONDA4TAB6 PO
[2025-04-10 10:23] LABS: BASO # 0.0 10^3/uL (0.0-0.2); BASO % 0.5 % (0.0-1.0); EOS # 0.7 10^3/uL (0.0-0.5); EOS % 9.3 % (0.0-3.0); LYMPH # 2.4 10^3/uL (1.5-5.0); LYMPH % 32.7 % (24.0-44.0); MONO # 1.1 10^3/uL (0.0-0.8); MONO % 14.3 % (2.0-8.0); NEUTROPHILS # 3.2 10^3/uL (1.5-8.5); NEUTROPHILS % 43.1 % (36.0-66.0); PLATELET COUNT, AUTOMATED 260 10^3/uL (150-450)
[2025-04-10 10:58] LABS: ALT/SGPT 36 U/L (7.0-40); AST/SGOT 28 U/L (<34); CALCIUM LEVEL 9.5 MG/DL (8.5-10.1); CARBON DIOXIDE LEVEL 27 MMOL/L (20-31); CHLORIDE LEVEL 104 MMOL/L (98-107); CHOLESTEROL LEVEL 178 MG/DL (<200); CHOLESTEROL RISK RATIO 3.77 (<5); CREATININE FOR GFR 1.24 MG/DL (0.70-1.30); GLOMERULAR FILTRATION RATE 74.0 (>60); LDL CHOLESTEROL 110.7 MG/DL (<100); NON-HDL-C 130.9 MG/DL; POTASSIUM SERUM 3.8 MMOL/L (3.5-5.1); SODIUM LEVEL 142 MMOL/L (136-145); TRIGLYCERIDES LEVEL 101 MG/DL (<150)
[2025-04-10 10:59] LABS: FREE T4 1.05 NG/DL (0.89-1.76)
[2025-04-10 11:32] LABS: ESTIMATED AVERAGE GLUCOSE 108.0 MG/DL (60-110)
[2025-04-10 11:34] LABS: VITAMIN B12 LEVEL 609 PG/ML (211-911)
== END ==
LOC: M PLALAB 08:35
PROVIDERS: ATTEND Student in an Organized Health Care Education/Training Program
DX: R63.4 Abnormal weight loss (principal)

== ENCOUNTER → 2025-05-29 | Outpatient (CLI) | payer OTHER ==
[~2025-05-29] MED LIST changes: -COLC0.6T47; -COLC0.6T47 PO; +COLC0.6T53; +COLC0.6T53 PO
== END ==
LOC: M PLAIMG 11:42
DX: M25.572 Pain in left ankle and joints of left foot (principal)

== ENCOUNTER → 2025-06-07 | Outpatient (CLI) | payer OTHER | LOC: M PLALAB 16:57 | PROVIDERS: ATTEND Student in an Organized Health Care Education/Training Program | DX: M79.672 Pain in left foot (principal) ==

== ENCOUNTER → 2025-06-17 | Outpatient (CLI) | payer OTHER | LOC: M PLAIMG 15:46 | DX: M25.561 Pain in right knee (principal) ==

== ENCOUNTER 2025-06-20 10:39 | Emergency (ER) | payer OTHER ==
[~2025-06-20] VITALS: Ht 185.4 cm; Wt 100.0 kg
[2025-06-20] MEDS ORDERED: CYCL-707 (10:50)
[2025-06-20] MEDS ORDERED: ALLO100T (10:50)
[2025-06-20] MEDS ORDERED: PRED10TA2 (10:50)
[2025-06-20] MEDS: PERCOCET 5MG/325MG TAB PO ONE (12:13)
[2025-06-20 12:29] LABS: BASO # 0.0 10^3/uL (0.0-0.2); BASO % 0.3 % (0.0-1.0); EOS # 0.1 10^3/uL (0.0-0.5); EOS % 0.4 % (0.0-3.0); LYMPH # 1.7 10^3/uL (1.5-5.0); LYMPH % 14.0 % (24.0-44.0); MONO # 1.6 10^3/uL (0.0-0.8); MONO % 13.7 % (2.0-8.0); NEUTROPHILS # 8.5 10^3/uL (1.5-8.5); NEUTROPHILS % 71.3 % (36.0-66.0); PLATELET COUNT, AUTOMATED 335 10^3/uL (150-450)
[2025-06-20 12:32] LABS: ERYTHROCYTE SEDIMENTATION RATE 56 mm/hr (0-15)
[2025-06-20 13:01] LABS: C REACTIVE PROTEIN QUANTITATIV 8.29 MG/DL (<1.0); CALCIUM LEVEL 9.2 MG/DL (8.5-10.1); CARBON DIOXIDE LEVEL 29 MMOL/L (20-31); CHLORIDE LEVEL 101 MMOL/L (98-107); CREATININE FOR GFR 1.15 MG/DL (0.70-1.30); GLOMERULAR FILTRATION RATE 81.0 (>60); POTASSIUM SERUM 3.7 MMOL/L (3.5-5.1); SODIUM LEVEL 139 MMOL/L (136-145)
[2025-06-20 13:02] LABS: RHEUMATOID FACTOR QUANT < 3.5 IU/ML (<14)
[2025-06-20] MEDS ORDERED: PERC5TAB12 PO (14:35)
[2025-06-20 14:45] VITALS: BP 168/104; TEMP 96.7; O2SAT 98
[2025-06-25 18:23] LABS: LYME TOTAL ANTIBODY CIA <= 0.90 Index (<=0.90)
== END 2025-06-20 14:55 | disposition home or self-care (01) ==
LOC: M ED 10:39
DX: R22.41 Localized swelling, mass and lump, right lower limb (principal); M25.561 Pain in right knee; Z88.5 Allergy status to narcotic agent; Z91.040 Latex allergy status; Z79.899 Other long term (current) drug therapy; Z79.52 Long term (current) use of systemic steroids

== ENCOUNTER → 2025-08-20 | Outpatient (CLI) | payer OTHER ==
[~2025-08-20] MED LIST changes: +ALLO100T; +CYCL-707; +PERC5TAB12 PO; +PRED10TA2
[2025-08-20 15:14] LABS: BASO # 0.0 10^3/uL (0.0-0.2); BASO % 0.4 % (0.0-1.0); EOS # 0.1 10^3/uL (0.0-0.5); EOS % 0.6 % (0.0-3.0); LYMPH # 1.9 10^3/uL (1.5-5.0); LYMPH % 24.3 % (24.0-44.0); MONO # 1.0 10^3/uL (0.0-0.8); MONO % 12.7 % (2.0-8.0); NEUTROPHILS # 4.9 10^3/uL (1.5-8.5); NEUTROPHILS % 61.7 % (36.0-66.0); PLATELET COUNT, AUTOMATED 305 10^3/uL (150-450)
[2025-08-20 15:46] LABS: C REACTIVE PROTEIN QUANTITATIV 0.82 MG/DL (<1.0); CALCIUM LEVEL 8.9 MG/DL (8.5-10.1); CARBON DIOXIDE LEVEL 29 MMOL/L (20-31); CHLORIDE LEVEL 104 MMOL/L (98-107); CREATININE FOR GFR 0.97 MG/DL (0.70-1.30); GLOMERULAR FILTRATION RATE > 90.0 (>60); POTASSIUM SERUM 4.2 MMOL/L (3.5-5.1); SODIUM LEVEL 144 MMOL/L (136-145)
== END ==
LOC: M PLALAB 13:48
PROVIDERS: ATTEND Student in an Organized Health Care Education/Training Program
DX: M25.461 Effusion, right knee (principal)